=== PATIENT | female | born 1965 | race Hispanic/Latino ===

== ENCOUNTER 2016-10-13 13:32 | Emergency (ER) | payer OTHER ==
[~2016-10-13] VITALS: Ht 154.9 cm; Wt 72.6 kg
[~2016-10-13 13:32] MED LIST: BENTYL20 M1 PO; BENTYL20 MG PO; CARAFATE1 GM/10 M1 PO; FIORICET 325 MG1 TAB PO; FIORICET 50-301 EACH PO; FISH OIL 1,0001 EAC3 PO; HYDROCHLOROTH12.5 M2 PO; LISINOPRIL20 M1 PO; MACROBID100 MG PO; NASONEX17 GM NASB; OMEPRAZOLE40 M1 PO; PYRIDIUM100 MG PO; TRAMADOL50 MG PO; VITAMIN C500 M8 PO; VITAMIN D2000 UNI1 PO; ZOFRAN ODT4 M1 SL; ZOFRAN4 M1 SL
--- NOTE | 2016-10-13 14:00 | ED NEURO DEFICIT/STROKE ---
History of Present Illness General Chief Complaint: General Adult Stated Complaint: MULTI COMPLAIANTS Source: patient, family Exam Limitations: no limitations Vital Signs & Intake/Output Vital Signs & Intake/Output Vital Signs Date Time Temp Pulse Resp B/P Pulse O2 O2 Flow FiO2 Ox Delivery Rate 10/13 1604 98.0 64 16 140/67 99 Room Air 10/13 1536 66 18 171/88 100 Room Air 10/13 1347 98 Room Air 10/13 1343 97.9 68 20 176/90 99 Room Air Allergies Coded Allergies: tramadol (PER PT MAKES HER VERY TIRED AND OUT OF IT 01/06/16) Reconcile Medications Amoxicillin 500 MG TABLET 1 TAB PO TID OTITIS MEDIA Ascorbic Acid (Vitamin C) (Unknown Strength) TABLET (Unknown Dose) PO DAILY SUPPLEMENT (Reported) Butalb/Acetaminophen/Caffeine (Fioricet 50-300-40 MG Capsule) 50 MG-300 MG-40 MG CAPSULE 1-2 TAB PO Q6P PRN HEADACHE Cholecalciferol (Vitamin D3) (Vitamin D) (Unknown Strength) TABLET (Unknown Dose) PO DAILY SUPPLEMENT (Reported) Lisinopril 20 MG TABLET 1 TAB PO DAILY HEART (Reported) Mometasone Furoate (Nasonex) 17 GM SPRAY.PUMP 2 SPRAY NASB DAILY ALLERGIES ( Reported) [place]-3/Dha/Epa/Fish Oil (Fish Oil 1,000 MG Softgel) (Unknown Strength) CAPSULE (Unknown Dose) PO DAILY SUPPLEMENT (Reported) Omeprazole 40 MG CAPSULE. 1 CAP PO DAILY gerd Triage Note: PT C/O HEADACHE X 2 WEEKS AND STATES THE TIP OF HER TONGUE IS NUMB X 1 WEEK AND THE MIDDLE FINGER OF HER LEFT HAND IS NUMB X 1 WEEK. NEUROS INTACT Triage Nurses Notes Reviewed? yes Onset: Abrupt Duration: week(s): (2), constant Timing: recent history Altered Sensations: LUE, LLE, tongue Vision Problem? No HPI: 51-year-old female comes into emergency room with complaints of headache has been going on for the past 2 weeks as well as some associated tingling and numbness in the tip of her tongue and numbness in her left finger and some numbness in her left lower leg. Denies any slurred speech confusion. Denies any vomiting or vision loss. Denies any previous history of stroke. There is no weakness. Symptoms have been persistent. Denies any recent travel or tick bites. Denies any other associated symptoms. Denies any chest pain or shortness of breath currently. Patient does report that the other day she had some chest pain that lasted for a few minutes on the left side of her chest but has resolved and has not returned since then. Past History Travel History Traveled to [place] past 21 day No Medical History Any Pertinent Medical History? see below for history Neurological: NONE EENT: NONE Cardiovascular: hypertension Respiratory: NONE Gastrointestinal: GERD, irritable bowel syndrome Hepatic: NONE Renal: NONE Musculoskeletal: NONE Psychiatric: NONE Endocrine: NONE Blood Disorders: NONE Cancer(s): NONE Surgical History Surgical History: hysterectomy Psychosocial History What is your primary language Upper Sorbian Tobacco Use: Never used ETOH Use: denies use Illicit Drug Use: denies illicit drug use Family History Hx Contributory? No Review of Systems Review of Systems Constitutional: Reports: no symptoms. EENTM: Reports: no symptoms. Respiratory: Reports: no symptoms. Cardiovascular: Reports: see HPI. GI: Reports: no symptoms. Genitourinary: Reports: no symptoms. Musculoskeletal: Reports: no symptoms. Skin: Reports: see HPI. Neurological/Psychological: Reports: see HPI. Hematologic/Endocrine: Reports: no symptoms. Immunologic/Allergic: Reports: no symptoms. All Other Systems: Reviewed and Negative Physical Exam Physical Exam General Appearance: well developed/nourished, no apparent distress, alert, awake Head: atraumatic, normal appearance Eyes: Bilateral: normal appearance, PERRL, EOMI. Ears, Nose, Throat: normal ENT inspection, moist mucous membrane, hearing grossly normal Neck: normal inspection, supple, full range of motion Respiratory: normal breath sounds, chest non-tender, no respiratory distress Cardiovascular: regular rate/rhythm Back: normal inspection Extremities: normal range of motion Psychiatric: awake, alert, oriented x 3 Cranial Nerves: normal hearing, normal speech, PERRL Coordination/Gait: normal finger to nose, normal gait Motor/Sensory: no motor/sensory deficits, gross sensation intact Skin: intact, normal color Core Measures CVA/TIA Diagnosis: No Severe Sepsis Present: No Septic Shock Present: No Progress Differential Diagnosis: acute glaucoma, Márquez's Palsy, drug intoxication, electrolyte imbalance, encephalitis, hypoglycemia, intracranial Hem., intracranial mass/tumor, meningitis, migraine OTERO, seizure disorder, stroke, subarachnoid Hem., vertebrobasilar insuff. Plan of Care: Orders Procedure Date/time Status TROPONIN LEVEL 10/13 1358 Complete COMPREHENSIVE METABOLIC PANEL 10/13 1358 Complete CBC WITHOUT DIFFERENTIAL 10/13 1358 Complete EKG 10/13 1358 Active Laboratory Tests 10/13/16 1407: Anion Gap 10, Estimated GFR > 60, BUN/Creatinine Ratio 17.5, Glucose 68, Calcium 9.6, Total Bilirubin 0.6, AST 26, ALT 44, Alkaline Phosphatase 67, Troponin I < 0.01, Total Protein 7.7, Albumin 4.5, Globulin 3.2, Albumin/Globulin Ratio 1.4, CBC w Diff NO MAN DIFF REQ, RBC 4.23, MCV 91.1, MCH 31.1 H, RDW 12.6, MPV 8.1, Gran % 48.2, Lymphocytes % 40.6, Monocytes % 10.1 H, Eosinophils % 0.4, Basophils % 0.7, Absolute Granulocytes 3.3, Absolute Lymphocytes 2.8, Absolute Monocytes 0.7 H, Absolute Eosinophils 0, Absolute Basophils 0, PUBS MCHC 34.1 Diagnostic Imaging: Viewed by Me: CT Scan. Discussed w/RAD: CT Scan. Radiology Impression: SERVICE DATE: 10/13/16 EXAM TYPE: CAT - CT HEAD WO IV CONTRAST EXAMINATION: CT HEAD WITHOUT CONTRAST CLINICAL INFORMATION: Headache. Numbness to tongue and left middle finger and leg. Evaluate for CVA. COMPARISON: MRI scan of the head dated 12/07/2015. CT scan of the head dated and 06/11/2014. TECHNIQUE: Contiguous axial imaging was performed from the skull base to vertex without intravenous administration of contrast. DLP: 529.16 mGy-cm FINDINGS: There is no evidence of acute intracranial hemorrhage or territorial infarction. No abnormal mass effect or midline shift is seen. Trinh to white matter differentiation is well preserved. No extra-axial fluid collections are identified. The ventricles are normal in size. There is no abnormal attenuation within the brain parenchyma. The osseous structures and soft tissues are normal. The mastoid air cells and visualized portions of the paranasal sinuses are well aerated. IMPRESSION: No acute intracranial pathology. DICTATED BY: BRYAN SIMEON,RAN Tsang DATE/TIME DICTATED:10/13/161421 Initial ED EKG: normal intervals, normal p-waves, normal sinus rhythm, rate (68) Comments: 10/13/2016 4:42:59 PM Patient clinically looks well. Patient is nontoxic-appearing. Patient is in no apparent distress. No neurological deficits. No evidence of acute stroke. Return if any concerns worsening symptoms. Patient understands and agrees with plan of care. Follow-up with neurologist and primary care doctor. Case discussed with Dr. Márquez. Departure Departure Disposition: HOME OR SELF CARE Condition: Stable Clinical Impression Primary Impression: Numbness and tingling Secondary Impressions: Headache, Otitis media Referrals: ERIC MALAGON MD (PCP/Family) Additional Instructions: Take amoxicillin and Fioricet as prescribed. Follow-up with neurologist in your primary care doctor. Return if any other concerns worsening symptoms. Please go over all results of today's visit with your primary care doctor. Contact your primary care doctor to let them know you were here in the emergency room. There may be nonspecific findings which may not be related to your visit today here in the emergency room but may require further evaluation and chronic monitoring by your primary care doctor. If you had a laceration today the chance of foreign body always remains. You should follow-up with your primary care doctor for recheck in 3-5 days for a wound check. If you had an x-ray done there is a chance that a fracture could have been missed on initial read and you should follow-up with your primary care doctor for repeat x-rays if symptoms persist. If your blood pressure was elevated here in the emergency room please have rechecked by her primary care doctor within the next 48 hours by your primary care doctor. If you were prescribed a narcotic here in the emergency room or any type of controlled substances you're not allowed to drive while taking this medication or operate any type of heavy machinery. Narcotics can make you feel lightheaded dizziness nausea and can cause constipation. You may need to sampler pickup a stool softener. Thank you for choosing [facility] emergency room. Please return to the emergency room immediately if you have any other concerns worsening of symptoms. Departure Forms: Customer Survey General Discharge Information Prescriptions: Current Visit Scripts Butalb/Acetaminophen/Caffeine (Fioricet 50-300-40 MG Capsule) 1-2 TAB PO Q6P PRN HEADACHE #20 MG Amoxicillin 1 TAB PO TID #30 TAB
[2016-10-13 14:14] LABS: ABSOLUTE BASOPHIL COUNT 0 /CUMM (0.0-0.2); ABSOLUTE EOSINOPHIL COUNT 0 /CUMM (0.0-0.7); ABSOLUTE GRANULOCYTE CT 3.3 /CUMM (1.4-6.5); ABSOLUTE LYMPH COUNT 2.8 /CUMM (1.2-3.4); ABSOLUTE MONOCYTE COUNT 0.7 /CUMM (0.10-0.60); BASOPHIL % 0.7 % (0.0-2.0); EOSINOPHIL % 0.4 % (0-5); GRANULOCYTE % 48.2 % (42.2-75.2); HEMATOCRIT 38.5 % (37-47); MEAN CORPUSCULAR HGB 31.1 PG (27.0-31.0); MEAN CORPUSCULAR HGB CONC 34.1 G/DL (33.0-37.0); MEAN CORPUSCULAR VOLUME 91.1 FL (81.0-99.0); MEAN PLATELET VOLUME 8.1 FL (7.4-10.4); PLATELET COUNT 312 /CUMM (130-400); RBC DISTRIBUTION WIDTH 12.6 % (11.5-14.5); RED BLOOD CELL CT 4.23 /CUMM (4.20-5.40); WHITE BLOOD CELL COUNT 6.8 /CUMM (4.8-10.8)
--- NOTE | 2016-10-13 14:29 | CT SCAN REPORT ---
EXAMINATION: CT HEAD WITHOUT CONTRAST CLINICAL INFORMATION: Headache. Numbness to tongue and left middle finger and leg. Evaluate for CVA. COMPARISON: MRI scan of the head dated 12/07/2015. CT scan of the head dated 11/12/2015 and 06/11/2014. TECHNIQUE: Contiguous axial imaging was performed from the skull base to vertex without intravenous administration of contrast. DLP: 529.16 mGy-cm FINDINGS: There is no evidence of acute intracranial hemorrhage or territorial infarction. No abnormal mass effect or midline shift is seen. Trinh to white matter differentiation is well preserved. No extra-axial fluid collections are identified. The ventricles are normal in size. There is no abnormal attenuation within the brain parenchyma. The osseous structures and soft tissues are normal. The mastoid air cells and visualized portions of the paranasal sinuses are well aerated. IMPRESSION: No acute intracranial pathology.
[2016-10-13] MEDS ORDERED: FIORICET 50-301 EACH PO (15:56)
[2016-10-13] MEDS ORDERED: AMOXICILLIN500 M3 PO (15:56)
[2016-10-13 16:04] VITALS: BP 140/67
== END 2016-10-13 16:08 ==
LOC: ERH 13:32
PROVIDERS: Physician Assistant Medical
DX: R20.0 Anesthesia of skin (principal); R20.2 Paresthesia of skin; R51 Headache; H66.90 Otitis media, unspecified, unspecified ear
CPT/HCPCS: 93005; 93010

== ENCOUNTER 2016-11-25 21:35 | Emergency (ER) | payer OTHER ==
[~2016-11-25] VITALS: Ht 152.4 cm; Wt 74.8 kg
[~2016-11-25 21:35] MED LIST changes: +AMOXICILLIN500 M3 PO
--- NOTE | 2016-11-25 22:19 | ED GENERAL ADULT ---
History of Present Illness General Chief Complaint: General Adult Stated Complaint: DRY MOUTH, HOT FLASHES Source: patient Exam Limitations: language barrier Vital Signs & Intake/Output Vital Signs & Intake/Output Vital Signs Date Time Temp Pulse Resp B/P Pulse O2 O2 Flow FiO2 Ox Delivery Rate 11/25 2351 97 Room Air 11/25 2347 96.8 89 18 172/78 97 Room Air 11/25 2138 99.4 100 18 179/88 100 Room Air ED Intake and Output 11/26 0000 11/25 1200 Intake Total Output Total Balance Patient 165 lb Weight Allergies Coded Allergies: tramadol (PER PT MAKES HER VERY TIRED AND OUT OF IT 01/06/16) Reconcile Medications Amoxicillin 500 MG TABLET 1 TAB PO TID OTITIS MEDIA Amoxicillin/Potassium Clav (Augmentin 875-125 Tablet) 875 MG-125 MG TABLET 1 TAB PO BID SINUSITIS Ascorbic Acid (Vitamin C) (Unknown Strength) TABLET (Unknown Dose) PO DAILY SUPPLEMENT (Reported) Butalb/Acetaminophen/Caffeine (Fioricet 50-300-40 MG Capsule) 50 MG-300 MG-40 MG CAPSULE 1-2 TAB PO Q6P PRN HEADACHE Cholecalciferol (Vitamin D3) (Vitamin D) (Unknown Strength) TABLET (Unknown Dose) PO DAILY SUPPLEMENT (Reported) Lisinopril 20 MG TABLET 1 TAB PO DAILY HEART (Reported) Mometasone Furoate (Nasonex) 17 GM SPRAY.PUMP 2 SPRAY NASB DAILY ALLERGIES ( Reported) Mometasone Furoate (Nasonex) 50 MCG SPRAY.PUMP 2 SPRAY NASB DAILY NASAL CONGESTION [place]-3/Dha/Epa/Fish Oil (Fish Oil 1,000 MG Softgel) (Unknown Strength) CAPSULE (Unknown Dose) PO DAILY SUPPLEMENT (Reported) Omeprazole 40 MG CAPSULE. 1 CAP PO DAILY gerd Triage Note: PT TO TRIAGE WITH C/O LEFT SIDED FACIAL PRESSURE x1DAY, CONGESTION x1WEEK, ABD DISCOMFORT AND CONSTIPATION x3DAYS. DENIES ANY PAIN, NO NEURO DEFICIT NOTED. VSS. PT SPEAK SYRIAC, SON HERE FOR TRANSLATION. Triage Nurses Notes Reviewed? yes Onset: Abrupt Duration: day(s):, constant, continues in ED Timing: recent history Injury Environment: home Severity: moderate, severe No Modifying Factors: none HPI: 51-year-old female comes into emergency room for further evaluation of nasal congestion, facial pressure, dry throat, and some dizziness is been going on for the past few days. Patient reports significant pressure below her eyes bilaterally. Denies any fever or vomiting. Denies any chest pain shortness of breath. She reports that she gets his acid reflux sensation chest where she feels very hot in her chest but denies it as feeling as pain. Denies any cardiac history. Nothing seems to make the symptoms better or worse. (KANWAL GARZA) Past History Travel History Traveled to [place] past 21 day No Medical History Any Pertinent Medical History? see below for history Neurological: NONE EENT: NONE Cardiovascular: hypertension Respiratory: NONE Gastrointestinal: GERD, irritable bowel syndrome Hepatic: NONE Renal: NONE Musculoskeletal: NONE Psychiatric: NONE Endocrine: NONE Blood Disorders: NONE Cancer(s): NONE Surgical History Surgical History: hysterectomy Psychosocial History What is your primary language Turkmen Tobacco Use: Never used Family History Hx Contributory? No (KANWAL GARZA) Review of Systems Review of Systems Constitutional: Reports: no symptoms. EENTM: Reports: see HPI. Respiratory: Reports: see HPI. Cardiovascular: Reports: no symptoms. GI: Reports: no symptoms. Genitourinary: Reports: no symptoms. Musculoskeletal: Reports: no symptoms. Skin: Reports: see HPI. Neurological/Psychological: Reports: no symptoms. Hematologic/Endocrine: Reports: no symptoms. Immunologic/Allergic: Reports: no symptoms. All Other Systems: Reviewed and Negative (KANWAL GARZA) Physical Exam Physical Exam General Appearance: well developed/nourished, no apparent distress, alert Head: atraumatic, normal appearance, maxillary tenderness bilaterally Eyes: Bilateral: normal appearance, EOMI. Ears, Nose, Throat: normal pharynx, normal ENT inspection, hearing grossly normal Neck: normal inspection, full range of motion Respiratory: normal breath sounds, no respiratory distress Cardiovascular: regular rate/rhythm Gastrointestinal: soft Back: normal inspection Extremities: normal inspection, normal range of motion, no edema Neurologic/Psych: awake, alert, oriented x 3, normal gait, normal mood/affect Skin: intact, normal color Core Measures ACS in differential dx? No CVA/TIA Diagnosis: No Severe Sepsis Present: No Septic Shock Present: No (KANWAL GARZA) Progress Differential Diagnoses I considered the following diagnoses in my evaluation of the patient: Sinusitis , upper respiratory infection, otitis media, vertigo, ND, cardiac arrhythmia, Plan of Care: Orders Procedure Date/time Status TROPONIN LEVEL 11/26 2203 Complete COMPREHENSIVE METABOLIC PANEL 11/26 2203 Complete CBC WITHOUT DIFFERENTIAL 11/26 2203 Complete EKG 11/26 2203 Active Laboratory Tests 11/25/162220: Anion Gap 11, Estimated GFR > 60, BUN/Creatinine Ratio 26.7 H, Glucose 148 H, Calcium 9.9, Total Bilirubin 0.3, AST 14, ALT 39, Alkaline Phosphatase 64, Troponin I < 0.01, Total Protein 7.3, Albumin 4.2, Globulin 3.1, Albumin/ Globulin Ratio 1.4, CBC w Diff NO MAN DIFF REQ, RBC 4.05 L, MCV 90.2, MCH 31.0, RDW 12.7, MPV 8.8, Gran % 83.4 H, Lymphocytes % 9.3 L, Monocytes % 6.9, Eosinophils % 0.3, Basophils % 0.1, Absolute Granulocytes 12.9 H, Absolute Lymphocytes 1.4, Absolute Monocytes 1.1 H, Absolute Eosinophils 0, Absolute Basophils 0, PUBS MCHC 34.3 Initial ED EKG: normal intervals, normal p-waves, normal QRS complex, normal sinus rhythm, rate (96), nonspecific ST T wave chg (KANWAL GARZA) Departure Departure Disposition: HOME OR SELF CARE Condition: Stable Clinical Impression Primary Impression: Sinusitis Referrals: ERIC MALAGON MD (PCP/Family) Additional Instructions: Take Augmentin and Nasonex as prescribed. Follow-up with your primary care doctor. Return to the emergency room if any concerns worsening symptoms. Please go over all results of today's visit with your primary care doctor. Contact your primary care doctor to let them know you were here in the emergency room. There may be nonspecific findings which may not be related to your visit today here in the emergency room but may require further evaluation and chronic monitoring by your primary care doctor. If you had a laceration today the chance of foreign body always remains. You should follow-up with your primary care doctor for recheck in 3-5 days for a wound check. If you had an x-ray done there is a chance that a fracture could have been missed on initial read and you should follow-up with your primary care doctor for repeat x-rays if symptoms persist. If your blood pressure was elevated here in the emergency room please have rechecked by her primary care doctor within the next 48 hours by your primary care doctor. If you were prescribed a narcotic here in the emergency room or any type of controlled substances you're not allowed to drive while taking this medication or operate any type of heavy machinery. Narcotics can make you feel lightheaded dizziness nausea and can cause constipation. You may need to pickup driver a stool softener. Thank you for choosing [facility] emergency room. Please return to the emergency room immediately if you have any other concerns worsening of symptoms. Departure Forms: Customer Survey General Discharge Information Prescriptions: Current Visit Scripts Amoxicillin/Potassium Clav (Augmentin 875-125 Tablet) 1 TAB PO BID #20 TAB Mometasone Furoate (Nasonex) 2 SPRAY NASB DAILY #1 INHAL Comments 11/26/2016 12:26:16 AM Patient clinically looks well. She is in no apparent distress. Nontoxic- appearing. Patient is not actively having any chest pain or shortness of breath. Patient reports that she feels a hot sensation on her chest. Due to the dizziness accompanied with it EKG and blood work was ordered. I do not feel that there is any type of acute cardiac event. Dizziness seems to be more vertigo related to sinusitis/upper Estar infection. Patient to follow up with her primary care doctor. Return if any concerns worsening symptoms. Nonspecific leukocytosis which could go along with acute bacterial sinusitis. (KANWAL GARZA) PA/DEGREASING WHEEL OPERATOR Co-Sign Statement Statement: ED Attending supervision documentation- [] I saw and evaluated the patient. I have also reviewed all the pertinent lab results and diagnostic results. I agree with the findings and the plan of care as documented in the PA's/DEGREASING WHEEL OPERATOR's documentation. [x] I have reviewed the ED Record and agree with the PA's/DEGREASING WHEEL OPERATOR's documentation. [] Additions or exceptions (if any) to the PAs/DEGREASING WHEEL OPERATOR's note and plan are summarized below: [] (YOSHI SIMEON,ELISA Mercer) Critical Care Note Critical Care Note Critical Care Time: non-applicable (KANWAL GARZA)
[2016-11-25 22:28] LABS: ABSOLUTE BASOPHIL COUNT 0 /CUMM (0.0-0.2); ABSOLUTE EOSINOPHIL COUNT 0 /CUMM (0.0-0.7); ABSOLUTE GRANULOCYTE CT 12.9 /CUMM (1.4-6.5); ABSOLUTE LYMPH COUNT 1.4 /CUMM (1.2-3.4); ABSOLUTE MONOCYTE COUNT 1.1 /CUMM (0.10-0.60); BASOPHIL % 0.1 % (0.0-2.0); EOSINOPHIL % 0.3 % (0-5); HEMATOCRIT 36.5 % (37-47); MEAN CORPUSCULAR HGB CONC 34.3 G/DL (33.0-37.0); MEAN CORPUSCULAR VOLUME 90.2 FL (81.0-99.0); MEAN PLATELET VOLUME 8.8 FL (7.4-10.4); PLATELET COUNT 313 /CUMM (130-400); RBC DISTRIBUTION WIDTH 12.7 % (11.5-14.5); RED BLOOD CELL CT 4.05 /CUMM (4.20-5.40); WHITE BLOOD CELL COUNT 15.5 /CUMM (4.8-10.8)
[2016-11-25 22:29] LABS: GRANULOCYTE % 83.4 % (42.2-75.2)
[2016-11-25] MEDS ORDERED: AUGMENTIN 875-1 EACH PO (23:42)
[2016-11-25] MEDS ORDERED: NASONEX17 GM NASB (23:42)
[2016-11-25 23:47] VITALS: BP 172/78
== END 2016-11-25 23:52 ==
LOC: ERH 21:35
PROVIDERS: Physician Assistant Medical
DX: J32.9 Chronic sinusitis, unspecified (principal)
CPT/HCPCS: 93005; 93010

== ENCOUNTER 2017-08-21 20:29 | Emergency (ER) | payer OTHER ==
[~2017-08-21 20:29] MED LIST changes: +ACETAMINOPHEN500 M4 PO; +AUGMENTIN 875-1 EACH PO; +CYCLOBENZAPRINE10 M1 PO; +DOXYCYCLINE HY100 M4 PO; +FLONASE ALLERG9.9 ML NASB; +GLUCOSAMINE-CH1 EACH PO; +IBUPROFEN800 M1 PO; +MUCINEX600 M1 PO; +PAZEO2.5 ML OU
[2017-08-21 20:43] VITALS: BP 180/77
[2017-08-21 20:55] LABS: ABSOLUTE BASOPHIL COUNT 0 /CUMM (0.0-0.2); ABSOLUTE EOSINOPHIL COUNT 0.1 /CUMM (0.0-0.7); ABSOLUTE GRANULOCYTE CT 3.1 /CUMM (1.4-6.5); ABSOLUTE LYMPH COUNT 3.2 /CUMM (1.2-3.4); ABSOLUTE MONOCYTE COUNT 0.7 /CUMM (0.10-0.60); BASOPHIL % 0.5 % (0.0-2.0); EOSINOPHIL % 1.2 % (0-5); GRANULOCYTE % 43.1 % (42.2-75.2); HEMATOCRIT 36.8 % (37-47); MEAN CORPUSCULAR HGB 30.6 PG (27.0-31.0); MEAN CORPUSCULAR HGB CONC 34.1 G/DL (33.0-37.0); MEAN CORPUSCULAR VOLUME 89.8 FL (81.0-99.0); MEAN PLATELET VOLUME 7.8 FL (7.4-10.4); PLATELET COUNT 313 /CUMM (130-400); RBC DISTRIBUTION WIDTH 12.6 % (11.5-14.5); WHITE BLOOD CELL COUNT 7.2 /CUMM (4.8-10.8)
--- NOTE | 2017-08-22 00:29 | ED CARDIAC/CP/PALPITATIONS ---
History of Present Illness General Chief Complaint: Chest Pain Stated Complaint: "I GOT F MAD AT THE URGENT CARE,I CAME HERE" CP Source: patient Exam Limitations: no limitations Vital Signs & Intake/Output Vital Signs & Intake/Output Vital Signs Date Time Temp Pulse Resp B/P B/P Pulse O2 O2 Flow FiO2 Mean Ox Delivery Rate 08/214 99 Room Air 08/213 76 20 180/77 97 Room Air ED Intake and Output 08/22 0000 08/21 1200 Intake Total Output Total Balance Patient 160 lb Weight Allergies Coded Allergies: peanut (TONGUE SWELLED, DYSPNEA, THROAT SWELLED 06/02/17) tramadol (PER PT MAKES HER VERY TIRED AND OUT OF IT 01/06/16) Reconcile Medications Acetaminophen 500 MG TABLET 2 TAB PO PRN PAIN (Reported) Cyclobenzaprine HCl 10 MG TABLET 1 TAB PO Q8P PAIN OR SPASM Doxycycline Hyclate 100 MG TABLET 1 TAB PO BID SINUSITIS Fluticasone Propionate (Flonase Allergy Relief) 50 MCG/ACTUATION SPRAY.SUSP 2 SPRAY NASB BID ALLERGIES (Reported) Glucosam HCl/Chondro Busch A/C/Mn (Glucosamine-Chondroitin Cap) 1 EACH CAPSULE 1 CAP PO DAILY SUPPLEMENT (Reported) Guaifenesin (Mucinex) 600 MG TAB.ER.12H 1 TAB PO BID SINUS SYMPTOMS (Reported ) Ibuprofen 800 MG TABLET 1 TAB PO TID PRN PAIN Lisinopril 20 MG TABLET 1 TAB PO DAILY BP (Reported) Olopatadine HCl (Pazeo) 0.7 % DROPS 1 DROP OU DAILY BOTH EYES (Reported) Tyler-3/Dha/Epa/Fish Oil (Fish Oil 1,000 MG Softgel) (Unknown Strength) CAPSULE (Unknown Dose) PO DAILY SUPPLEMENT (Reported) Triage Note: PER PT CP ALL DAY, 3/ GOT MAD AT THE URGENT CARE AND MADE PAIN WORSE. Triage Nurses Notes Reviewed? yes Onset: Abrupt Duration: hour(s):, gone now, intermittent, waxing and waning Quality/Severity: SQUEEZING Location: LEFT CHEST BENEATH BREAST Radiation: no radiation, BUT PTS WHOLE LEFT ARM IS PAINFUL Activities at Onset: rest HPI: Patient presents for evaluation of an intermittent chest pain. Patient states she initially began experiencing left arm pain for a few days but then beginning this morning had an onset rather abruptly of a left chest pressure beneath the left breast. The patient has been intermittent but getting worse. She states she has a spasm of pain every few minutes. She was treated with aspirin and nitroglycerin at the walk-in center and was told she needed to go to the emergency department for an evaluation. Fortunately she has no chest pain during the time of this interview. The pain does not change with deep inspiration. 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 Patient states that she exercises regularly. She denies any history of heart attacks but also denies any prior stress tests or other cardiac evaluations. She is a nonsmoker. Family history is pertinent for of her father during surgery, it is unclear if he had coronary artery disease. Past History Travel History Traveled to [place] past 21 day No Medical History Any Pertinent Medical History? see below for history Neurological: NONE EENT: NONE Cardiovascular: hypertension Respiratory: NONE Gastrointestinal: GERD, irritable bowel syndrome Hepatic: NONE Renal: NONE Musculoskeletal: NONE Psychiatric: NONE Endocrine: NONE Blood Disorders: NONE Cancer(s): NONE Surgical History Surgical History: hysterectomy Psychosocial History What is your primary language Lao Tobacco Use: Never used Family History Hx Contributory? No Review of Systems Review of Systems Constitutional: Reports: no symptoms. EENTM: Reports: no symptoms. Respiratory: Reports: no symptoms. Cardiovascular: Reports: chest pain. GI: Reports: no symptoms. Genitourinary: Reports: no symptoms. Musculoskeletal: Reports: see HPI. Skin: Reports: no symptoms. Neurological/Psychological: Reports: no symptoms. Hematologic/Endocrine: Reports: no symptoms. Immunologic/Allergic: Reports: no symptoms. All Other Systems: Reviewed and Negative Physical Exam Physical Exam Cardiovascular: SEE BELOW Comments: Gen.: Well-nourished, well-developed, no acute respiratory distress. Head: Normocephalic, atraumatic. Eyes: Normal inspection bilaterally Ears: Normal inspection bilaterally Nose: Normal inspection Throat/mouth : Moist mucosa Neck: Supple, full range of motion, no goiter Heart: Regular rate and rhythm, no murmurs rubs or gallops Lungs: Clear to auscultation bilaterally with normal air entry Chest: Nontender Back: Normal range of motion Abdomen: Soft, nontender, nondistended, normal bowel sounds Extremities: Normal range of motion grossly, equal radial pulses, no cyanosis clubbing or edema Neurologic: Cranial nerves grossly intact, speech is clear Skin: warm and dry Psychiatric: Calm, cooperative, no apparent delusions or hallucinations Core Measures ACS in differential dx? No CVA/TIA Diagnosis No Sepsis Present: No Sepsis Focused Exam Completed? No Progress Differential Diagnosis: AMI, musculoskeletal pain, PUD/GERD, unstable angina Plan of Care: Orders Procedure Date/time Status TROPONIN LEVEL 08/22 40 Complete EKG 08/22 40 Active TROPONIN LEVEL 08/21 2044 Complete LIPASE 08/21 2044 Complete COMPREHENSIVE METABOLIC PANEL 08/21 2044 Complete CBC WITHOUT DIFFERENTIAL 08/21 2044 Complete AMYLASE 08/21 2044 Complete EKG 08/21 2031 Active Laboratory Tests 08/22/17 0028: Troponin I < 0.01 08/21/172048: Anion Gap 12, Estimated GFR > 60, BUN/Creatinine Ratio 23.8, Glucose 98, Calcium 10.1, Total Bilirubin 0.3, AST 30, ALT 42, Alkaline Phosphatase 77, Troponin I < 0.01, Total Protein 7.7, Albumin 4.6, Globulin 3.1, Albumin/Globulin Ratio 1.5, Amylase 62, Lipase 227, CBC w Diff NO MAN DIFF REQ, RBC 4.10 L, MCV 89.8, MCH 30.6, RDW 12.6, MPV 7.8, Gran % 43.1, Lymphocytes % 44.8, Monocytes % 10.4 H, Eosinophils % 1.2, Basophils % 0.5, Absolute Granulocytes 3.1, Absolute Lymphocytes 3.2, Absolute Monocytes 0.7 H, Absolute Eosinophils 0.1, Absolute Basophils 0, PUBS MCHC 34.1 Initial ED EKG: NSR, no ST T wave changes Prior EKG: unchanged Repeat EKG: unchanged Rhythm Strip: normal sinus rhythm Comments: 08/22/2017 1:49:00 AM I updated Marta on test results after her initial round of testing and have now just updated her on the second EKG and troponin. She appears comfortable and has no symptoms at this time. I feel she is stable for outpatient management. Departure Departure Disposition: HOME OR SELF CARE Condition: Stable Clinical Impression Primary Impression: Atypical chest pain Referrals: Shaggy SIMEON,Batsheva (PCP/Family) Cj Arango MD Additional Instructions: Ibuprofen 600 mg every 6 hours as needed for pain. Follow-up with your primary care physician or the climatologist listed as soon as possible for reevaluation and further testing. Since the cause of your chest pain is unclear please return if any concerns or sudden worsening. Please note that there might be incidental findings in your evaluation that are unrelated to the current emergency department visit. Please notify your primary care doctor about this emergency department visit in order to obtain and review all of the testing performed so that these incidental findings can be monitored as needed. If you had an x-ray performed, please understand that some fractures may not be seen on the initial set of x-rays. If your symptoms persist you might need a repeat set of x-rays to check for such a fracture. If you had a laceration evaluated, please understand that foreign bodies such as glass or wood may not be visible to the naked eye or on plain x-rays. If the wound becomes red, swollen, increasingly more painful or if there is any drainage from the wound, please have it reevaluated by a physician for the possibility of a retained foreign body. If you're unable to follow up as outlined in the discharge instructions please return to the emergency department. Thank you for choosing the [facility] Emergency Department for your care. It was a pleasure to serve you today. Glenn Márquez M.D. [facility] Departure Forms: Customer Survey General Discharge Information Critical Care Note Critical Care Note Critical Care Time: non-applicable
== END 2017-08-22 01:59 ==
LOC: ERH 20:29
PROVIDERS: Emergency Medicine
DX: R07.89 Other chest pain (principal)
CPT/HCPCS: 93005; 93010

== ENCOUNTER 2018-01-16 16:18 | Emergency (ER) | payer OTHER ==
[2018-01-16 17:49] LABS: ABSOLUTE BASOPHIL COUNT 0 /CUMM (0.0-0.2); ABSOLUTE EOSINOPHIL COUNT 0.1 /CUMM (0.0-0.7); ABSOLUTE GRANULOCYTE CT 6.7 /CUMM (1.4-6.5); ABSOLUTE LYMPH COUNT 2.6 /CUMM (1.2-3.4); ABSOLUTE MONOCYTE COUNT 0.6 /CUMM (0.10-0.60); BASOPHIL % 0.4 % (0.0-2.0); EOSINOPHIL % 0.6 % (0-5); GRANULOCYTE % 67.2 % (42.2-75.2); HEMATOCRIT 38.7 % (37-47); MEAN CORPUSCULAR HGB 30.7 PG (27.0-31.0); MEAN CORPUSCULAR HGB CONC 33.8 G/DL (33.0-37.0); MEAN CORPUSCULAR VOLUME 90.7 FL (81.0-99.0); MEAN PLATELET VOLUME 7.8 FL (7.4-10.4); PLATELET COUNT 360 /CUMM (130-400); RBC DISTRIBUTION WIDTH 12.8 % (11.5-14.5); RED BLOOD CELL CT 4.26 /CUMM (4.20-5.40)
--- NOTE | 2018-01-16 18:39 | RADIOLOGY REPORT ---
EXAMINATION: XR CHEST CLINICAL INFORMATION: Palpitations COMPARISON: 05/11/2013 TECHNIQUE: 2 views of the chest were obtained. FINDINGS: The lungs are well-inflated and clear. Trachea is midline in position. No evidence of interstitial disease, focal consolidation, mass, pneumothorax or pleural effusion. The cardiomediastinal silhouette and pulmonary [place] have normal size and contour. The visualized bones are intact. The thoracic vertebra have normal height and alignment. The disc spaces are normal. The examined upper abdomen is normal. IMPRESSION: Normal chest.
--- NOTE | 2018-01-16 19:12 | ED CARDIAC/CP/PALPITATIONS ---
History of Present Illness General Chief Complaint: General Adult Stated Complaint: HEART PALPITATIONS Source: patient, family, deaf interpreter Exam Limitations: language barrier Vital Signs & Intake/Output Vital Signs & Intake/Output Vital Signs Date Time Temp Pulse Resp B/P B/P Pulse O2 O2 Flow FiO2 Mean Ox Delivery Rate 01/16 1702 97.0 75 20 148/89 99 Room Air Allergies Coded Allergies: peanut (TONGUE SWELLED, DYSPNEA, THROAT SWELLED 06/02/17) tramadol (PER PT MAKES HER VERY TIRED AND OUT OF IT 01/06/16) Reconcile Medications Acetaminophen 500 MG TABLET 2 TAB PO PRN PAIN (Reported) Cyclobenzaprine HCl 10 MG TABLET 1 TAB PO Q8P PAIN OR SPASM Doxycycline Hyclate 100 MG TABLET 1 TAB PO BID SINUSITIS Fluticasone Propionate (Flonase Allergy Relief) 50 MCG/ACTUATION SPRAY.SUSP 2 SPRAY NASB BID ALLERGIES (Reported) Glucosam HCl/Chondro Busch A/C/Mn (Glucosamine-Chondroitin Cap) 1 EACH CAPSULE 1 CAP PO DAILY SUPPLEMENT (Reported) Guaifenesin (Mucinex) 600 MG TAB.ER.12H 1 TAB PO BID SINUS SYMPTOMS (Reported ) Ibuprofen 800 MG TABLET 1 TAB PO TID PRN PAIN Lisinopril 20 MG TABLET 1 TAB PO DAILY BP (Reported) Lorazepam (Ativan) 0.5 MG TABLET 1 TAB PO BIDP PRN anxiety Olopatadine HCl (Pazeo) 0.7 % DROPS 1 DROP OU DAILY BOTH EYES (Reported) [place]-3/Dha/Epa/Fish Oil (Fish Oil 1,000 MG Softgel) (Unknown Strength) CAPSULE (Unknown Dose) PO DAILY SUPPLEMENT (Reported) Triage Note: PT TO ED WITH ONE MONTH OF INTERMITTENT CHEST PALPITATIONS. DENIES SOB OR DIZZINESS. REPORTS HX OF ANXIETY AND BELIEVES IT IS RELATED TO SYMPTOMS. Triage Nurses Notes Reviewed? yes Onset: Abrupt Duration: constant, waxing and waning, x months Timing: recent history Quality/Severity: mild, aching Location: central Radiation: no radiation Activities at Onset: none Prior Chest Pain/Card Workup: no prior chest pain Associated Symptoms: anxiety HPI: 52-year-old female history of high cholesterol hypertension presents to ER complaining of a several month history of central tolerating chest pain associated with bilateral hand tremors and feeling anxious. She is been seen numerous times by her primary care physician and here in the ER for the same. She was recently seen by her primary care physician who told her and referred her to a psychiatrist. She denies depression and insomnia hallucinations. She' s been taking [id number] supplements to help with anxiety with no improvement. Chest pain is not worse with exertion no pain with inspiration or shortness of breath fever chills cough hemoptysis (Simon Sandy) Past History Travel History Traveled to [place] past 21 day No Medical History Any Pertinent Medical History? see below for history Neurological: NONE EENT: NONE Cardiovascular: hypertension, HIGH CHOLESTEROL Respiratory: NONE Gastrointestinal: GERD, irritable bowel syndrome Hepatic: NONE Renal: NONE Musculoskeletal: CARPAL TUNNEL Psychiatric: anxiety Endocrine: NONE Blood Disorders: NONE Cancer(s): NONE Surgical History Surgical History: hysterectomy Psychosocial History What is your primary language Cambodian Tobacco Use: Never used Family History Hx Contributory? No (Simon Sandy) Review of Systems Review of Systems Constitutional: Reports: see HPI. Comments Review of systems: See HPI, All other systems negative. Constitutional, no chills no fever, no malaise HEENT: no sore throat no congestion, no ear pain Cardiovascular:chest pain , palpitation Skin: no rashes, no change in skin Respiratory: No dyspnea no cough no sputum no hemoptysis GI: No nausea no vomiting, no diarrhea, no bloating/constipation Muscle skeletal: No joint pain, no back pain, no neck pain, Neurologic: , no headache Psych: stress no depression,. Heme/endocrine: No bruising no bleeding Immunology: No lymphadenopathy (Simon Sandy) Physical Exam Physical Exam General Appearance: well developed/nourished, no apparent distress, alert, awake Cardiovascular: regular rate/rhythm Comments: Well-developed well-nourished person in no acute distress HEENT: Normal EENT exam; PERRL, EOMI, no nystagmus. HEAD is atraumatic. moist mucous membranes. Neck: Supple, no lymphadenopathy, normal range of motion without pain or tenderness Back: Nontender, no CVA tenderness. Full range of motion Cardiovascular: Regular rate and rhythms no murmurs rubs or gallops, normal JVP Respiratory: Chest nontender.There were no bony deformities, no asymmetry. No respiratory distress. Patient speaking in full complete sentences. Breath sounds clear to auscultation bilaterally: NO W/R/R Abdomen: Soft, nontender nondistended, no appreciable organomegaly. Normal bowel sounds. No rebound/guarding, No appreciable enlargement of the abdominal aorta, No ascites. Extremity: No edema, full range of motion of extremities, normal and equal pulses bilaterally, 5 out of 5 strength noted to bilateral upper and lower extremities Neuro: Alert oriented x3, motor sensory normal, cranial nerves II through XII grossly intact. There were no obvious focal neurologic abnormalities. Skin: No appreciable rash on exposed skin, skin is warm and dry. Psych: Mood and affect is normal, memory and judgment is normal. Core Measures ACS in differential dx? Yes CVA/TIA Diagnosis No Sepsis Present: No Sepsis Focused Exam Completed? No (Jennifer CESAR,Simon) Progress Differential Diagnosis: AMI, aortic dissection, atrial fibrillation, CHF/pulm edema, costochondritis, hyperventilation, musculoskeletal pain, myocarditis, pericarditis Plan of Care: Orders Procedure Date/time Status THYROID STIMULATING HORMONE 01/16 161 Complete TROPONIN LEVEL 01/16 161 Complete COMPREHENSIVE METABOLIC PANEL 01/16 161 Complete CBC WITHOUT DIFFERENTIAL 01/16 1619 Complete EKG 01/16 161 Active Laboratory Tests 01/16/18 1720: Anion Gap 10, Estimated GFR > 60, BUN/Creatinine Ratio 14.4, Glucose 96, Calcium 9.7, Total Bilirubin 0.4, AST 17, ALT 24, Alkaline Phosphatase 82, Troponin I < 0.01, Total Protein 7.8, Albumin 4.7, Globulin 3.1, Albumin/Globulin Ratio 1.5, TSH 1.100, CBC w Diff NO MAN DIFF REQ, RBC 4.26, MCV 90.7, MCH 30.7, MCHC 33.8, RDW 12.8, MPV 7.8, Gran % 67.2, Lymphocytes % 25.6, Monocytes % 6.2, Eosinophils % 0.6, Basophils % 0.4, Absolute Granulocytes 6.7 H, Absolute Lymphocytes 2.6, Absolute Monocytes 0.6, Absolute Eosinophils 0.1, Absolute Basophils 0 Kayley has had this pain going on for several months they're requesting something to help her with her anxiety advise close follow-up with kier pleater as well as the psychiatrist provided. Return precautions were discussed at length they feel comfortable with plan I do not believe she requires repeat troponin even pain has been constant going on for several months I answered all their questions, They feel comfortable with plan cleared for discharge Diagnostic Imaging: Viewed by Me: Radiology Read. Discussed w/RAD: Radiology Read. Radiology Impression: PATIENT: KAYLEY DINERO PRESENT AGE: 52 PATIENT ACCOUNT NO: [id number] : 65 LOCATION: [facility] ORDERING PHYSICIAN: Henrry CESAR SERVICE DATE: 01/16/18 EXAM TYPE: RAD - XRY-CHEST XRAY, TWO VIEWS EXAMINATION: XR CHEST CLINICAL INFORMATION: Palpitations COMPARISON: 05/11/2013 TECHNIQUE: 2 views of the chest were obtained. FINDINGS: The lungs are well-inflated and clear. Trachea is midline in position. No evidence of interstitial disease, focal consolidation, mass, pneumothorax or pleural effusion. The cardiomediastinal silhouette and pulmonary [place] have normal size and contour. The visualized bones are intact. The thoracic vertebra have normal height and alignment. The disc spaces are normal. The examined upper abdomen is normal. IMPRESSION: Normal chest. DICTATED BY: Walt Johns MD DATE/TIME DICTATED:01/16/181832 PLUG MAKING OPERATOR:RYAN DATE/ TIME TRANSCRIBED:01/16/181832 CONFIDENTIAL, DO NOT COPY WITHOUT APPROPRIATE AUTHORIZATION. <Electronically signed in Other Vendor System> SIGNED BY: Walt Johns MD 01/16/181838 Initial ED EKG: normal intervals, normal p-waves, normal QRS complex, normal sinus rhythm (Simon Sandy) Departure Departure Time of Disposition: 1924 Disposition: HOME OR SELF CARE Condition: Stable Clinical Impression Primary Impression: Chest pain Secondary Impressions: Anxiety Referrals: Batsheva Coon MD (PCP/Family) Additional Instructions: Follow-up with the psychiatrist or primary care physician referred you to when you return home. Patient. Follow-up with kier pleater Dr. al as discussed as you may require a Holter monitor. Ativan as directed use caution this may make you drowsy. Return anytime sooner with any concerns Departure Forms: Customer Survey General Discharge Information Prescriptions: Current Visit Scripts Lorazepam (Ativan) 1 TAB PO BIDP PRN anxiety #10 TAB (Simon Sandy) PA/FILTERS ASSEMBLER Co-Sign Statement Statement: ED Attending supervision documentation- x I saw and evaluated the patient. I have also reviewed all the pertinent lab results and diagnostic results. I agree with the findings and the plan of care as documented in the PA's/FILTERS ASSEMBLER's documentation. [] I have reviewed the ED Record and agree with the PA's/FILTERS ASSEMBLER's documentation. [] Additions or exceptions (if any) to the PAs/FILTERS ASSEMBLER's note and plan are summarized below: [] (Shanelle SIMEON,[place]) Critical Care Note Critical Care Note Critical Care Time: non-applicable (Simon Sandy)
[2018-01-16] MEDS ORDERED: ATIVAN0.5 M1 PO (19:27)
[2018-01-16 19:35] VITALS: BP 136/88
== END 2018-01-16 19:41 ==
LOC: ERH 16:18
PROVIDERS: Physician Assistant Medical
DX: R07.9 Chest pain, unspecified (principal); F41.9 Anxiety disorder, unspecified; R25.1 Tremor, unspecified; I10 Essential (primary) hypertension
CPT/HCPCS: 71046; 93005; 93010